=== PATIENT | female | born 1960 | race Caucasian/White ===

== ENCOUNTER → 2018-04-05 | Outpatient (CLI) | payer BC ==
[~2018-04-05] MED LIST: AMI25 PO; LOR5 PO; PAN20 PO; SIMV-42 PO
--- NOTE | 2018-04-05 14:29 | RADIOLOGY IMAGING REPORT ---
FACILITY: [facility] PATIENT NAME: JOHNNY RANGEL : [id number] MR: [id number] V: [id number] EXAM DATE: ORDERING PHYSICIAN: SEBASTIAN MORAN TECHNOLOGIST: Cintia Barroso PROCEDURE:BILATERAL DIGITAL SCREENING MAMMOGRAM WITH CAD ASSISTED INTERPRETATION & 3D TOMOSYNTHESIS COMPARISON:Prior mammograms 11/23/15, 08/26/14, 08/28/12. INDICATIONS:SCREENING FINDINGS: There is predominant fatty replacement throughout the breasts. The parenchymal pattern has remained stable allowing for difference in mammographic technique & patient positioning. There is no evidence of malignant appearing mass, malignant appearing calcifications or other secondary sign of malignancy in either breast. DIAGNOSTIC CATEGORY 1--NEGATIVE. RECOMMENDATIONS: ROUTINE MAMMOGRAM AND CLINICAL EVALUATION. IMPRESSION: BIRADS 1: Negative. No significant abnormality is seen. Dictated by: Letitia Camarillo M.D. on 04/05/2018 at 8:51 Transcribed by: LYNNE on 04/05/2018 at 9:48 Approved by: Letitia Camarillo M.D. on 04/05/2018 at 14:27 [facility]
== END ==
LOC: MAMO 03:07
PROVIDERS: ATTEND Family Medicine
DX: Z12.31 Encounter for screening mammogram for malignant neoplasm of breast (principal)
CPT/HCPCS: 77063; 77067